=== PATIENT | female | born 1970 | race Native Hawaiian/Other Pacific Islander ===

== ENCOUNTER 2016-11-27 20:50 | Inpatient (IN) | payer BC, OTHER ==
[~2016-11-27] VITALS: Ht 167.6 cm; Wt 83.9 kg
[~2016-11-27 20:50] MED LIST: LOSA50TA21 PO; NORG1TAB71 PO
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
--- NOTE | 2016-11-27 21:14 | NUR ---
LANA started, labs drawn & sent.
--- NOTE | 2016-11-27 21:20 | NUR ---
Dr. Cummings at bedside for eval.
[2016-11-27 21:24] LABS: BASOPHILS # (AUTO) 0.3 /CMM (0.0-0.2); BASOPHILS % (AUTO) 2.4 % (0.0-2.0); EOSINOPHILS # (AUTO) 0.2 /CMM (0.0-0.7); HEMATOCRIT 41 % (33-45); HEMOGLOBIN 13.9 g/dL (11.5-14.8); LYMPHOCYTES # (AUTO) 1.8 /CMM (0.8-4.8); LYMPHOCYTES % (AUTO) 15.9 % (20.0-44.0); MEAN CORPUSCULAR HEMOGLOBIN 30 PG (26.0-33.0); MEAN CORPUSCULAR HGB CONC 34 g/dl (31.0-36.0); MEAN CORPUSCULAR VOLUME 90 fL (82-100); MONOCYTES # (AUTO) 0.5 /CMM (0.1-1.30); MONOCYTES % (AUTO) 4.3 % (2.0-12.0); NEUTROPHILS # (AUTO) 8.4 /CMM (1.8-8.9); NEUTROPHILS % (AUTO) 75.4 % (43.0-81.0); PLATELET COUNT (AUTO) 224 /CMM (150-450); RDW COEFFICIENT OF VARIATION 12.3 (11.5-15.0); RED BLOOD CELL COUNT(AUTO) 4.59 MIL/uL (4.0-5.2); WHITE BLOOD COUNT (AUTO) 11.2 K/uL (4.3-11.0)
--- NOTE | 2016-11-27 21:28 | NUR ---
CXR at bedside.
[2016-11-27 21:38] LABS: CALCIUM, SERUM 8.7 mg/dL (8.5-10.1); CREATININE 0.8 mg/dL (0.6-1.3); POTASSIUM 3.5 mmol/L (3.5-5.1)
[2016-11-27 21:44] LABS: INR 0.89 (0.87-1.13); PROTHROMBIN TIME 9.1 SECS (9.5-12.7)
[2016-11-27 21:57] LABS: BILIRUBIN,DIRECT 0.1 mg/dL (0.0-0.2); BILIRUBIN,TOTAL 0.2 mg/dL (0.2-1.0); TOTAL PROTEIN, SERUM 7.7 g/dL (6.4-8.2)
[2016-11-27 22:00] LABS: TROPONIN I 0.027 ng/mL (0.00-0.056)
--- NOTE | 2016-11-27 22:10 | NUR ---
Lying in bed w/ resp even & unlabored, on continuous cardiac monitoring w/ at bedside, pending test results.
[2016-11-27] MEDS ORDERED: ONDANSETRON HCL/PF 4 MG/2 ML VIAL IVP ONE (22:30)
[2016-11-27] MEDS ORDERED: MORPHINE SULFATE INJ 2 MG/ML DISP.SYRIN IV ONE (22:30)
[2016-11-27] MEDS ORDERED: ASPIRIN 325 MG TABLET PO ONE (22:30)
[2016-11-27] MEDS ORDERED: NITROGLYCERIN 0.4 MG/TAB BOTTLE SL ONE (22:30)
[2016-11-27] MEDS ORDERED: ASPIRIN 325 MG TABLET ONE (22:51)
[2016-11-27] MEDS ORDERED: MORPHINE SULFATE INJ 4 MG/ML DISP.SYRIN ONE (22:51)
[2016-11-27] MEDS ORDERED: NITROGLYCERIN 0.4 MG/TAB BOTTLE ONE (22:52)
[2016-11-27] MEDS ORDERED: ONDANSETRON HCL/PF 4 MG/2 ML VIAL ONE (22:52)
[2016-11-27] MEDS ORDERED: TAMO20TA4 PO (22:58)
--- NOTE | 2016-11-27 23:22 | NUR ---
CALLED SATELLITE PROJECT SITE MONITOR FOR TELE BED
--- NOTE | 2016-11-27 23:40 | NUR ---
medicated as ordered for continued midsternal chest pressure, resp even & unlabored, mild discomfort noted.
--- NOTE | 2016-11-27 23:59 | NUR ---
PT GOING TO 119-2 TELEMETRY - DR MCGRAW ANSWERING SERVICE PAGED
--- NOTE | 2016-11-28 00:07 | NUR ---
Report given to MARIA DE JESUS Sommer for pt admission to [facility] rm 119-2.
--- NOTE | 2016-11-28 00:30 | NUR ---
SURVEY RESEARCH ASSOCIATE RCD PT FROM ER DX CHEST PAIN; PT IS A/O x4; AT THE BEDSIDE. PT NSR ON MONITOR. CLEAR LUNG SOUNDS ON ROOM AIR. SKIN INTACT. PT ON CARDIAC DIET REQUESTING FOOD. PT DENIES PAIN/NAUSEA AT THIS TIME. NO DISTRESS NOTED. PT VERBALIZING MULTIPLE STRESSORS IN LIFE AT THIS TIME.
[2016-11-28 00:46] VITALS: BP 132/64
[2016-11-28] MEDS ORDERED: MAG HYDROX/AL HYDROX/SIMETH 30 ML UDC ONE (00:56)
[2016-11-28] MEDS ORDERED: MAG HYDROX/AL HYDROX/SIMETH 30 ML UDC PO PRN (01:00)
[2016-11-28] MEDS ORDERED: ACETAMINOPHEN 325 MG TABLET PO PRN (01:00)
[2016-11-28] MEDS ORDERED: LOSARTAN POTASSIUM 50 MG TABLET PO ONE (01:00)
[2016-11-28] MEDS ORDERED: ONDANSETRON HCL/PF 4 MG/2 ML VIAL IV PRN (01:00)
[2016-11-28] MEDS ORDERED: LOSARTAN POTASSIUM 50 MG TABLET PO SCH ×2 (01:00→18:00)
[2016-11-28] MEDS ORDERED: MAG HYDROX/AL HYDROX/SIMETH 30 ML UDC PO ONE (01:00)
[2016-11-28] MEDS ORDERED: ZOLPIDEM TARTRATE 5 MG TABLET PO PRN (01:00)
[2016-11-28] MEDS ORDERED: HOME MED MISCELLANEOUS PO ONE (01:00)
[2016-11-28] MEDS ORDERED: TAMOXIFEN CITRATE 10 MG TABLET PO SCH ×2 (01:00→09:00)
[2016-11-28] MEDS ORDERED: HYDROMORPHONE 1 MG/1 ML DISP.SYRIN IV PRN (01:00)
[2016-11-28] MEDS ORDERED: TAMOXIFEN CITRATE 10 MG TABLET PO ONE (01:00)
--- NOTE | 2016-11-28 01:33 | NUR ---
ACTIVITY SPECIALIST PT REQUESTING TO TAKE HER OWN HOME MEDS; PER THEY DONT WANT TO BE BILLED FOR ADDITIONAL MEDICATIONS.
[2016-11-28] MEDS ORDERED: ZOLPIDEM TARTRATE 5 MG TABLET ONE (02:03)
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
[2016-11-28 04:00] VITALS: BP 96/53
[2016-11-28 06:34] LABS: BASOPHILS % (AUTO) 0.2 % (0.0-2.0); EOSINOPHILS # (AUTO) 0.2 /CMM (0.0-0.7); EOSINOPHILS % (AUTO) 2.5 % (0.0-6.0); HEMATOCRIT 35 % (33-45); LYMPHOCYTES # (AUTO) 2.1 /CMM (0.8-4.8); LYMPHOCYTES % (AUTO) 23.2 % (20.0-44.0); MEAN CORPUSCULAR HEMOGLOBIN 31 PG (26.0-33.0); MEAN CORPUSCULAR HGB CONC 34 g/dl (31.0-36.0); MEAN CORPUSCULAR VOLUME 90 fL (82-100); MONOCYTES # (AUTO) 0.6 /CMM (0.1-1.30); MONOCYTES % (AUTO) 6.3 % (2.0-12.0); NEUTROPHILS # (AUTO) 6.2 /CMM (1.8-8.9); NEUTROPHILS % (AUTO) 67.8 % (43.0-81.0); PLATELET COUNT (AUTO) 228 /CMM (150-450); RDW COEFFICIENT OF VARIATION 13.6 (11.5-15.0); RED BLOOD CELL COUNT(AUTO) 3.92 MIL/uL (4.0-5.2); WHITE BLOOD COUNT (AUTO) 9.2 K/uL (4.3-11.0)
[2016-11-28 06:43] LABS: CALCIUM, SERUM 8.2 mg/dL (8.5-10.1); CREATININE 0.8 mg/dL (0.6-1.3); POTASSIUM 3.5 mmol/L (3.5-5.1)
--- NOTE | 2016-11-28 06:48 | NUR ---
FREELANCE PHOTOGRAPHER PT SLEEPING WELL; DENIES CHEST PAIN. NO DISTRESS NOTED.
[2016-11-28 06:59] LABS: TROPONIN I 0.099 ng/mL (0.00-0.056)
[2016-11-28] MEDS ORDERED: PANTOPRAZOLE 40 MG TABLET.DR PO SCH (07:30)
[2016-11-28 08:00] VITALS: BP 100/49
--- NOTE | 2016-11-28 08:00 | NUR ---
TELE1/RN AM SHIFT INITIAL NOTES RECEIVED PT AWAKE SITTING IN BED. PT A/O X 4, DENIES PAIN. NO ACUTE CHANGE OF CONDITION NOTED. PT ON ROOM AIR SATURATING @ 100%, LUNG SOUNDS CLEAR. ON TELE WITH SINUS RHYTHM, HR 67. IV SITE FLUSHED, PATENT WITH NO S/S OF INFECTION. PT IS COMFORTABLE AT THIS TIME. SCHEDULED AM MEDS TO BE GIVEN. CL WITHIN REACHED AND SAFETY MAINTAINED. ON GOING MONITORING.
[2016-11-28] MEDS ORDERED: TAMOXIFEN PO SCH (09:00)
[2016-11-28] MEDS ORDERED: NORGESTIMATE ETHINYL ESTRADIOL PO SCH (09:00)
[2016-11-28] MEDS ORDERED: ASPIRIN 81 MG TAB.CHEW PO SCH (09:00)
[2016-11-28] MEDS ORDERED: CARVEDILOL 6.25 MG TABLET PO SCH (10:30)
--- NOTE | 2016-11-28 10:45 | NUR ---
TELE1/RN CT ANGIOGRAM PT SEEN & EXAMINED BY DR. CHAN. PROPOSED CT ANGIOGRAM PROCEDURE TO PT. CONSENT OBTAINED FROM PATIENT FOR SAID PROCEDURE.
[2016-11-28] MEDS ORDERED: CT SWABBABLE VALVE TRANS SET 1 EA INFUS.SET MC ONE (10:58)
[2016-11-28] MEDS ORDERED: IV NS 0.9% 250 ML IV ONE (10:58)
[2016-11-28] MEDS ORDERED: IOHEXOL-350 100 ML VIAL IV ONE (10:58)
[2016-11-28] MEDS ORDERED: METOPROLOL TARTRATE INJ 5 MG/5 ML AMPUL IVP PRN (11:30)
--- NOTE | 2016-11-28 11:57 | NUR ---
WAITING FOR RN TO FINISH SO WE CAN CT SCAN THE PT. RN WILL CALL WHEN READY.
[2016-11-28 12:00] VITALS: BP 108/65
--- NOTE | 2016-11-28 12:27 | NUR ---
PT'S HR IS TOO HIGH FOR HEART SCAN, RN WILL CALL AFTER BETA BLOCKERS ARE GIVEN & HR IS NEAR 60.
--- NOTE | 2016-11-28 12:35 | NUR ---
TD/RN OFF TO CT ANGIOGRAM PT LEFT TD UNIT VIA BED IN STABLE CONDITION FOR CT ANGIOGRAM.
[2016-11-28] MEDS ORDERED: NITROGLYCERIN 4.9 GM SPRAY ONE (12:44)
[2016-11-28 13:00] VITALS: BP 132/76
--- NOTE | 2016-11-28 13:00 | NUR ---
TD/RN BACK ON FLOOR PT RETURNED FROM CT ANGIOGRAM VIA BED. PT PLACED ON 2L O2 VIA N/C. VS STABLE. PT BEING MONITORED. SCHEDULED COREG HELD D/T PT RECEIVED METOPROLOL IVP DURING PROCEDURE, DR. CHAN AWARE.
--- NOTE | 2016-11-28 15:37 | NUR ---
MS1/RN D/C HOME SPOKE TO DR. MCGRAW, WITH NEW VERBAL ORDER RECEIVED TO D/C PT HOME, ORDER NOTED AND CARRIED. PER PT HER CAN PICK HER UP AT 1900. ON GOING MONITORING.
[2016-11-28 16:00] VITALS: BP 93/54
--- NOTE | 2016-11-28 17:37 | NUR ---
MS1/SALES EXECUTIVE INSURANCE HOME DISCHARGE INSTRUCTIONS GIVEN TO PT, VERBALIZED UNDERSTANDING. DISCHARGE DOCUMENTS GIVEN TO PT. PERSONAL BELONGINGS RETUNED TO PT INCLUDING OWN MEDICATIONS, INVENTORY LOG FORM SIGNED OFF. ID BAND REMOVED, IV SITE REMOVED, PRESSURE DRESSING APPLIED, NO S/S OF INFECTION. PT LEFT MS1 UNIT VIA WHEELCHAIR IN STABLE CONDITION, ACCOMPANIED BY PT'S LEAVING IN A PRIVATE CAR.
== END 2016-11-28 17:50 | disposition home or self-care (01) | DRG 392 ==
LOC: ER 20:52 → TELE1 11-28 00:18 → TELE-TD 11-28 11:43 → MEDSG1 11-28 13:23
PROVIDERS: ADMIT Internal Medicine; ATTEND Internal Medicine
DX: K21.9 Gastro-esophageal reflux disease without esophagitis (principal); R74.8 Abnormal levels of other serum enzymes; I10 Essential (primary) hypertension; M51.26 Other intervertebral disc displacement, lumbar region; Z85.3 Personal history of malignant neoplasm of breast
CPT/HCPCS: 36415; 71010-TC; 75574; 80048-TC; 80061-TC; 80076-TC; 84484-TC; 85025-TC; 85730-TC; 87081-TC; 93307-TC; A4606; J2270; J2405; J3490; J7050; Q9967; Z7610